=== PATIENT | female | born 1985 | race Caucasian/White ===

== ENCOUNTER 2023-03-23 14:17 | Emergency (ER) | payer SELFPAY ==
[2023-03-23] VITALS (7 sets, daily range): BP systolic 96–120; BP diastolic 52–66; PULSE 63–86; RESP 18; TEMP 36.5; O2SAT 98–100
--- NOTE | ~2023-03-23 | CT_ITS ---
EXAMINATION: CT abdomen pelvis wo con DATE: 03/23/2023 16:03 INDICATION: flank pain w/ hematuria TECHNIQUE: Computed tomography (CT) of the abdomen and pelvis was performed without intravenous contr ast. Automated exposure control and iterative reconstruction technique were employed. The dose-length product was 598.77 mGy-cm. COMPARISON: None. FINDINGS: Lower thorax: Unremarkable Liver: Normal. Biliary/Gallbladder: Gallbladder is normal. No bile duct dilation. Pancreas: No mass or duct dilation. Spleen: Normal. Adrenals:No mass. Kidneys: No mass, stone, or hydronephrosis. GI tract: No small or large bowel dilation. Normal appendix. Mesentery/Peritoneum: No ascites, mass, or free air. Retroperitoneum: No mass. Pelvis: Pelvic organs are within normal limits. Soft Tissues: Soft tissues and body wall unremarkable. Bones: No acute osseous finding. IMPRESSION: No acute abdominal pelvic process detected. Reviewed, dictated and finalized at location K.
[2023-03-23 15:16] LABS: Basophils Percent Auto 0.4 % (0.2-1.2); Eosinophils Absolute Auto 0.1 K/mm3 (0-0.3); Eosinophils Percent Auto 0.8 % (0-4.4); Hematocrit 43.6 % (37.0-47.0); Hemoglobin 14.2 g/dL (12.0-15.0); Immature Granulocyte Absolute 0.06 K/mm3 (0.00-0.031); Immature Granulocyte Percent A 0.7 % (0-0.5); Lymphocytes Percent Auto 24.5 % (18.3-44.2); Mean Corpuscular HGB Conc 32.6 g/dl (32-36); Mean Corpuscular Hemoglobin 30.1 pg (26-34); Mean Corpuscular Volume 92.4 fl (80-100); Mean Platelet Volume 11.3 fl (7.4-10.4); Monocytes Absolute Auto 0.6 K/mm3 (0.1-0.6); Monocytes Percent Auto 6.7 % (2.6-8.5); Neutrophils Percent Auto 66.9 % (45.5-73.1); Platelet Count Result 198 k/mm3 (150-375); Red Blood Count 4.72 M/mm3 (4.2-5.4); Red Cell Distribution Width 12.1 % (11.5-14.5)
[2023-03-23 15:25] LABS: Appearance Urine Clear (Clear); Bacteria Urine None Seen /hpf; Bilirubin Urine Negative (Negative); Blood Urine 3+ (Negative); Color Urine Yellow (Yellow); Glucose Urine UA Negative (Negative); Ketones Urine Trace mg/dL (Negative); Leukocyte Esterase Ur Trace LEU/UL (Negative); Nitrate Urine Negative (Negative); Non Pathogenic Casts 0-2; Protein Urine Negative (Negative); RBC Urine 21-50 /hpf (0-2); Specific Grav Ur 1.014 (1.001-1.035); Squamous Epithelial Cell Urine Occasional /hpf (Few); Urobilinogen Urine 0.2 mg/dL (<2.0); WBC Urine 0-5 /hpf
[2023-03-23 15:27] LABS: Alanine Aminotransferase 20 U/L (6-35); Albumin Level 4.4 g/dL (3.5-5.1); Alkaline Phosphatase 64 U/L (38-126); Anion Gap 8 mmol/L (8-16); Aspartate Amino Transferase 24 U/L (14-36); Bilirubin,Total 0.6 mg/dL (0.2-1.3); Blood Urea Nitrogen 16 mg/dL (7-17); Calcium 8.8 mg/dL (8.4-10.2); Carbon Dioxide 26 mmol/L (22-30); Chloride 101 mmol/L (98-107); Estimated Glomerular Filt Rate > 60; Glucose 84 mg/dL (65-110); Potassium 3.5 mmol/L (3.4-5.0); Sodium 135 mmol/L (137-145)
[2023-03-23 15:39] LABS: Add Urine Microscopic? YES
--- NOTE | 2023-03-23 17:00 | ED.FEMALEGU ---
HPI - Female Genitourinary General Chief complaint: Back Pain/Injury Stated complaint: flank pain bilaterally Time Seen by Provider: 03/23/23 15:40 History of Present Illness HPI Narrative: 37-year-old female presenting with lower back pain, she has history of kidney stones and thinks that might be what is happening. Also endorses increased frequency. Related Data Allergies Allergy/AdvReac Type Severity Reaction Status Date / Time No Known Allergies Allergy Verified 03/23/23 14:35 Review of Systems Review of Systems: CONST: No fever. HEENT: No sore throat C/V: No chest pain RESP: No cough GI: No nausea : Dysuria. M/S: No joint pain. SKIN: No rash. NEURO: [No headache or focal numbness or weakness] PSYCH: [No depression] Exam Narrative: EXAMINATION OF ORGAN SYSTEMS/BODY AREAS: Constitutional: Vital signs per nursing GENERAL: Appears somewhat uncomfortable and HEAD: Normal with no signs of head trauma. EYES: EOMI, conjunctiva normal ENT: Hearing grossly intact LUNGS: Nonlabored breathing. HEART: [Regular rate and rhythm] ABD: [Soft], [nontender to palpation] BACK: Bilateral flank discomfort EXT: Normal range of motion SKIN: [No rashes or lesions.] NEURO: [Alert and oriented x 3. No gross focal sensory or strength deficits.] PSYCH: Normal affect Course Vital Signs Vital signs: Vital Signs Temperature 97.7 F 03/23/23 14:30 Pulse Rate 86 03/23/23 14:30 Respiratory Rate 18 03/23/23 14:30 Blood Pressure 120/52 L 03/23/23 14:30 Pulse Oximetry 100 03/23/23 14:30 Oxygen Delivery Room Air 03/23/23 14:30 Temperature 97.7 F 03/23/23 14:30 Pulse Rate 63 03/23/23 17:15 Respiratory Rate 18 03/23/23 17:15 Blood Pressure 100/60 03/23/23 17:15 Pulse Oximetry 100 03/23/23 17:15 Oxygen Delivery Room Air 03/23/23 14:30 MDM - Female Genitourinary MDM Narrative Medical decision making narrative: 37-year-old female presenting with low back pain with increased frequency, vital signs stable, on exam she does have some discomfort to her lower back, no abdominal tenderness whatsoever or pelvic tenderness, she declined pelvic exam or STD screening. I suspect likely kidney stone, UTI/pyelonephritis, doubt PID without vaginal discharge. UA shows hematuria without much WBCs or bacteria, CT does not show any acute abnormality Findings discussed with the patient, given hematuria I will tentatively start her on antibiotics at this time with follow-up to urology, and return precautions. Patient agreeable this plan. Lab Data 03/23/23 15:06 03/23/23 15:06 Labs: Lab Results 03/23/23 Range/Units 15:06 WBC 9.0 (4.5-10.0) K/mm3 RBC 4.72 (4.2-5.4) M/mm3 Hgb 14.2 (12.0-15.0) g/dL Hct 43.6 (37.0-47.0) % MCV 92.4 (80-100) fl MCH 30.1 (26-34) pg MCHC 32.6 (32-36) g/dl RDW 12.1 (11.5-14.5) % Plt Count 198 (150-375) k/mm3 MPV 11.3 H (7.4-10.4) fl Immature Gran % (Auto) 0.7 H (0-0.5) % Neut % (Auto) 66.9 (45.5-73.1) % Lymph % (Auto) 24.5 (18.3-44.2) % [place] % (Auto) 6.7 (2.6-8.5) % Eos % (Auto) 0.8 (0-4.4) % Baso % (Auto) 0.4 (0.2-1.2) % Lymph # (Auto) 2.20 (0.9-3.2) K/mm3 [place] # (Auto) 0.6 (0.1-0.6) K/mm3 Eos # (Auto) 0.1 (0-0.3) K/mm3 Baso # (Auto) 0.0 (0.0-0.1) K/mm3 Abs Immat Gran (auto) 0.06 H (0.00-0.031) K/mm3 Absolute Neuts (auto) 6.0 (1.3-6.7) K/mm3 Absolute Nucleated RBC 0.0 (0.0-0.012) K/mm3 Nucleated RBC % 0.0 (0.0-0.2) % Sodium 135 L (137-145) mmol/L Potassium 3.5 (3.4-5.0) mmol/L Chloride 101 (98-107) mmol/L Carbon Dioxide 26 (22-30) mmol/L Anion Gap 8 (8-16) mmol/L BUN 16 (7-17) mg/dL Creatinine 0.60 L (0.7-1.0) mg/dL Estim Creat Clear Calc Not Reportable Estimated GFR > 60 (59 - ) Glucose 84 (65-110) mg/dL Calcium 8.8 (8.4-10.2) mg/dL Total Bilirubin 0.6 (0.2-1.3) mg/dL AST 24 (14-36) U/L ALT 20 (6-35) U/L Alkal
[2023-03-23] MEDS: CEPHALEXIN 500 MG CAPSULE PO (17:13)
[2023-03-23] MEDS: KETOROLAC 30 MG/ML VIAL (*BKC) IM (17:14)
== END 2023-03-23 17:23 | disposition home or self-care (01) ==
PROVIDERS: Emergency Medicine; Emergency Provider Emergency Medicine; PCP Family Medicine
DX: M54.50 Low back pain, unspecified (principal); R31.9 Hematuria, unspecified; Z87.442 Personal history of urinary calculi
CPT/HCPCS: 36415; 74176; 80053; 81001; 81025; 85025; 87086; 96372; 99284; A9270; J1885

== ENCOUNTER 2024-06-20 14:56 | Emergency (ER) | payer SELFPAY ==
--- NOTE | ~2024-06-20 | XR_ITS ---
XR chest 2V DATE: 06/20/2024 16:17 INDICATION: Cough, congestion TECHNIQUE: 2 views COMPARISON: None FINDINGS: Normal heart size. No hilar or mediastinal enlargement. No pulmonary infiltrate or consolidation, pleural effusion or pulmonary vascular congestion or pneumo thorax. Mild thoracic dextroscoliosis. IMPRESSION: No active cardiopulmonary disease Reviewed, dictated and finalized at location A.
[2024-06-20 15:05] VITALS: BP 114/61; PULSE 96; RESP 20; TEMP 36.8; O2SAT 98
--- NOTE | 2024-06-20 16:27 | ED.URI ---
HPI - URI/Sore Throat General Chief Complaint: Upper Respiratory Infection Stated Complaint: Sinus Time Seen by Provider: 06/20/24 16:25 History of Present Illness HPI Narrative: Patient presents with complaints of 5 days URI symptoms, productive cough, wheezing. She reports frequent bronchitis, particularly this time of year. She has been taking ibuprofen and Sudafed with minimal relief. Related Data Allergies Allergy/AdvReac Type Severity Reaction Status Date / Time No Known Allergies Allergy Verified 06/20/24 15:12 Review of Systems Review of Systems: All systems reviewed & are unremarkable except as noted in HPI and below Constitutional: Constitutional: Reports no additional constitutional complaints ENT: Reports system reviewed and no additional complaints, except as documented Cardiovascular: Cardiovascular: Reports no additional cardiovascular complaints Respiratory: Respiratory: Reports no additional respiratory complaints, Reports no additional respiratory complaints, Reports chest congestion, Reports cough and Reports wheezing Gastrointestinal: Gastrointestinal: Reports no additional gastrointestinal complaints Exam Const: General: cooperative, no acute distress, alert and awake Orientation/consciousness: oriented to person, oriented to place and oriented to time HENMT: Head: normal to inspection Ears: TM's normal bilaterally Mouth: Yes moist mucous membranes Throat: posterior oropharynx abnormal erythema Resp: Effort & Inspection: normal respiratory effort and able to speak in complete sentences Auscultation: clear to auscultation bilaterally, no crackles, no rales, no rhonchi and wheezes expiratory wheezes and scattered wheezes Cardio: Palpation: normal PMI Rate: regular rate Rhythm: regular rhythm Heart sounds: S1 normal heart sound present and S2 normal heart sound present Neuro: General: oriented to person, oriented to place and oriented to time Cranial nerves: Yes CN's II-XII intact bilaterally Psych: Appearance: grossly normal Thought process: Normal thought process present Insight: Good insight present (Psych) Judgement: Good judgement present (Psych) Course Course Level of Care: Express Care Visit Vital Signs Vital signs: Vital Signs Temperature 98.3 F 06/20/24 15:05 Pulse Rate 96 06/20/24 15:05 Respiratory Rate 20 06/20/24 15:05 Blood Pressure 114/61 06/20/24 15:05 Pulse Oximetry 98 06/20/24 15:05 Oxygen Delivery Room Air 06/20/24 15:05 Temperature 98.3 F 06/20/24 15:05 Pulse Rate 96 06/20/24 15:05 Respiratory Rate 20 06/20/24 15:05 Blood Pressure 114/61 06/20/24 15:05 Pulse Oximetry 98 06/20/24 15:05 Oxygen Delivery Room Air 06/20/24 15:05 MDM - URI/Sore Throat MDM Narrative Medical decision making narrative: Nontoxic appearing, stable for discharge home. Will start prednisone burst, albuterol inhaler, and Z-Grant for additive anti-inflammatory properties. Follow with primary care provider. Emergency department for new or worse symptoms. Discharge instructions reviewed with patient, as well as provided in writing per nursing staff. The instructions also include specific and strict return/GO TO THE ER as well as f/u information. All questions have been answered, and the patient deny any further questions with discharge and discharge plan. Some parts of this dictation were generated by voice recognition software and may contain typographical and/or grammatical inaccuracies. Differential Diagnosis Differential diagnosis: Likely upper respiratory infection, croup, sinusitis, viral infection, bronchitis, influenza and pharyngitis Medical Records Attestation: I reviewed the patient's medical records. Imaging Data Attestation: I personally reviewed and interpreted this imaging study as follows: My impression: no acute findings Radiologist's impression: [place] [address] XRay Report Signed Patient: Daysi Carmona : 1985 MR#: [id number] Age: 38 Acct:[id number] Loc: [facility] ADM Date: 06/20/24Attending Dr: Ordering Physician: Kym Dailey FNP Date of Service: 06/20/24 Procedure(s): XR chest 2V Accession Number(s): [id number] cc: Kym Dailey FNP; Carson Stroud MD~ XR chest 2V DATE: 06/20/2024 16:17 INDICATION: Cough, congestion TECHNIQUE: 2 views COMPARISON: None FINDINGS: Normal heart size. No hilar or mediastinal enlargement. No pulmonary infiltrate or consolidation, pleural effusion or pulmonary vascular congestion or pneumothorax. Mild thoracic dextroscoliosis. IMPRESSION: No active cardiopulmonary disease Reviewed, dictated and finalized at location A. Dictated By: Venu Mendez MD 06/20/24 1621 Signed By: <Electronically signed by Venu Mendez MD in OV> 06/20/24 1622 Discharge Plan Discharge Clinical Impression: Bronchitis Patient Disposition: Home, Self-Care Condition: Stable Instructions: Antibiotic Form, Acute Bronchitis (ED) Additional Instructions: Take all medications as prescribed, follow-up with primary care provider. Emergency department for new or worse symptoms Patient Language: Mongolian Prescriptions: New azithromycin 250 mg tablet See Rx Instructions PO .COMPLEX Qty: 6 0RF Rx Instructions: For 250 mg dose pack: take 500 mg today (day 1), then 250 mg for 4 days (days 2-5) albuterol sulfate [Ventolin HFA] 90 mcg/actuation HFA aerosol inhaler 2 puff inhalation QID PRN (Reason: shortness of breath or wheezing) Qty: 8.5 0RF prednisone 50 mg tablet 50 mg PO DAILY Qty: 5 0RF Follow-up/Referrals: Carson Stroud M.D. [Primary Care Provider] - Time of Disposition: 16:38
== END 2024-06-20 16:48 | disposition home or self-care (01) ==
PROVIDERS: Emergency Provider Nurse Practitioner Family; PCP Family Medicine
DX: J40 Bronchitis, not specified as acute or chronic (principal)
CPT/HCPCS: 71046; 99203; G0463

== ENCOUNTER 2024-11-30 13:01 | Emergency (ER) | payer MEDICAID, SELFPAY ==
--- NOTE | 2024-11-30 13:05 | ED_ITS ---
HPI - Eye Problem General Chief complaint: Eye Problems Stated complaint: Right Eye Irritation Time Seen by Provider: 11/30/24 13:15 Source: patient Mode of arrival: ambulatory Limitations: no limitations History of Present Illness HPI Narrative: Daysi is a 39-year-old female patient presenting to the clinic today with complaints of right eye pain/irritation. States that symptoms started yesterday. Denies any known injury or any known foreign body get into her eye but she is concerned that she may have scratched it. Has burning/stinging to the right lower eyelid that she thought may be a stye and in her sclera started getting red and burning. Also is reporting a headache. Related Data Allergies Allergy/AdvReac Type Severity Reaction Status Date / Time No Known Allergies Allergy Verified 11/30/24 13:13 Review of Systems Review of Systems: Pertinent positives per HPI. Patient denies any fever, chills, rash, visual changes, dizziness, cough, shortness of breath, chest pain, palpitations, nausea, vomiting, diarrhea, constipation, abdominal pain, or any urinary issues. PMFSH Comments At the time of my signature, I reviewed and agree with the nursing past medical, surgical, social, and family history. There is no relevant family history pertinent to the patient complaint. Exam Narrative: General: Well-developed, well nourished, in no apparent distress Head: Normocephalic, atraumatic Eyes: Pupils equally round and reactive to light bilaterally, EOM intact, left sclera and conjunctive clear, no discharge, lids normal, right sclera and conjunctiva injected with some green mucopurulent discharge with lower right eyelid swelling with erythematous base rash with vesicular lesions. Ears: TMs intact and clear, ear canals clear, no drainage, grossly hearing normal. Nose: Nares patent, no discharge, no inflammation, no sinus tenderness. Mouth: Oral pharynx without lesions or masses, good dentition, MMM. Neck: Supple, trachea midline, no enlargement of anterior or posterior cervical nodes, no thyroid masses or goiter palpable. Cardio: Regular rate and rhythm, s1 and s2 normal, no murmur appreciated. Resp: Clear to auscultation bilaterally, no rhonchi, rales, wheezing or rubs Course Course Emergency Course: Portions of this record may have been created with voice recognition software. Level of Care: Express Care Visit Vital Signs Vital signs: Vital Signs Temperature 36.6 C 11/30/24 13:08 Pulse Rate 66 11/30/24 13:08 Respiratory Rate 20 11/30/24 13:08 Blood Pressure 96/64 L 11/30/24 13:08 Pulse Oximetry 100 11/30/24 13:08 Oxygen Delivery Room Air 11/30/24 13:08 Temperature 36.6 C 11/30/24 13:08 Pulse Rate 66 11/30/24 13:08 Respiratory Rate 20 11/30/24 13:08 Blood Pressure 96/64 L 11/30/24 13:08 Pulse Oximetry 100 11/30/24 13:08 Oxygen Delivery Room Air 11/30/24 13:08 Vital signs reviewed MDM - Eye Problem MDM Narrative Medical decision making narrative: At the time of visit patient is resting comfortably on the exam table. Patient appears to be nontoxic. Procedures: Wood's lamp exam was performed and shows no sign corneal abrasion, dendritic lesions, or foreign body. Plan: I suspect patient has herpes zoster/shingles on the right lower eyelid. No sign in dendritic lesions in the right eye. Contacted Dr. Mendez- channeling machine operator office - [facility] in [place], [place]- patient scheduled for an appt at [address] on acyclovir. Supportive measures were discussed with the patient and they voiced understanding discharge instructions and agrees to treatment plan. Strict return/ ER precautions reviewed Differential Diagnosis Differential diagnosis: Likely corneal abrasion, conjunctivitis, acute iritis, hyphema, periorbital cellulitis, subconjunctival hemorrhage, glaucoma, corneal ulcer, ruptured globe and other (Herpes zoster, herpes ophthalmicus) Discharge Plan Discharge Clinical Impression: Herpes zoster of eyelid Patient Disposition: Home Condition: Stable Instructions: Antibiotic Form, Shingles (ED) Additional Instructions: Wood's lamp exam shows no sign of dendritic lesions Take acyclovir as prescribed Practice good hand washing techniques Avoid touching eyes May use warm moist washcloth to help remove eye discharge If eyes are matted shut-do not pry eyes open-use a warm moist cloth to loosen matting and wipe matter away from eye May take Tylenol/Motrin as needed for pain or fever May take Benadryl as needed for itching Go to the emergency room if you develop any fever that is not controlled by Tylenol or Motrin, loss of vision, eye pain, increase eye swelling,visual changes, headache, confusion, lethargy, weakness, chest pain, or shortness of breath. Follow-up with Dr. Mendez- channeling machine operator- [facility] in [place], [place] tomorrow at 0830- be there 10-15 minutes early for paperwork Address is [address], [place] [address] Patient Language: Macedonian Prescriptions: New acyclovir 800 mg tablet 800 mg PO Q4H 7 Days Qty: 42 0RF Rx Instructions: while awake; give 5 doses in 24 hours Follow-up/Referrals: Carson Stroud M.D. [Primary Care Provider] - Stand Alone Forms: Work/School Release IP Time of Disposition: 14:02 Quality NIHSS Nursing Documentation ED NIHSS nursing documentation: reviewed/agree
[2024-11-30 13:08] VITALS: BP 96/64; PULSE 66; RESP 20; TEMP 36.6; O2SAT 100
[2024-11-30] MEDS: TETRACAINE HCL 0.5% OPHTH SOLN 4 ML BTL RIGHT EYE (13:19)
[2024-11-30] MEDS: DACRIOSE EYE IRRIGATION 118 ML BOTTLE RIGHT EYE (13:19)
[2024-11-30] MEDS: FLUORESCEIN SOD 1 MG/STRIP RIGHT EYE (13:20)
== END 2024-11-30 14:10 | disposition home or self-care (01) ==
PROVIDERS: Emergency Provider Nurse Practitioner Family; PCP Family Medicine
DX: B02.39 Other herpes zoster eye disease (principal)
CPT/HCPCS: 99213; A9270; G0463